=== PATIENT | male | born 1980 | race Caucasian/White ===

== ENCOUNTER 2021-11-21 08:37 | Outpatient (REF) | payer OTHER, SELFPAY ==
[2021-11-21 09:03] LABS: MANUAL DIFF FLAG NO
[2021-11-21 09:21] LABS: Basophils Absolute Auto 0.1 X10*3/uL (0.0-0.2); Basophils Percent Auto 1.2 % (0-2); Eosinophils Absolute Auto 0.2 X10*3/uL (0.0-0.4); Eosinophils Percent Auto 3.7 % (0-4); Hematocrit 44.4 % (42.0-52.0); Hemoglobin 15.3 g/dl (14.0-18.0); Imm Gran Abs Auto 0.04 X10*3/uL (0.00-0.03); Imm Gran Pct Auto 0.7 % (0.0-0.4); Lymphocytes Absolute Auto 1.7 X10*3/uL (1.2-4.9); Lymphocytes Percent Auto 28.1 % (20-40); Mean Corpuscular HGB Conc 34.5 g/dl (31.0-36.0); Mean Corpuscular Hemoglobin 29.5 pg (27.0-33.0); Mean Corpuscular Volume 85.7 fL (80.0-98.0); Mean Platelet Volume 10.1 fL (9.4-12.4); Monocytes Absolute Auto 0.9 X10*3/uL (0.1-1.2); Monocytes Percent Auto 14.4 % (2-11); Neutrophils Absolute Auto 3.1 x10*3/uL (2.0-8.3); Neutrophils Percent Auto 51.9 % (45-73); Platelet Count 211 X10*3/uL (160-400); Red Blood Count 5.18 X10*6/uL (4.60-5.80); Red Cell Distribution Width 12.3 % (11.0-16.0)
[2021-11-21 09:51] LABS: Alanine Aminotransferase 29 U/L (0-40); Albumin Level 4.4 g/dL (3.5-5.0); Alkaline Phosphatase 36 U/L (39-117); Anion Gap 14 (12-20); Aspartate Amino Transferase 26 U/L (5-37); Bilirubin Total 1.1 mg/dL (0.0-1.0); Blood Urea Nitrogen 18 mg/dL (9-16); Calcium 8.8 mg/dL (8.4-10.2); Carbon Dioxide 23 mmol/L (22-29); Chloride 106 mmol/L (96-108); Cholesterol 155 mg/dL; Estimated Glomerular Filt Rate > 60; Glucose Fasting 114 mg/dL (60-99); HDL Cholesterol 56 mg/dL; LDL Cholesterol Calculated 86 mg/dl; Potassium 4.3 mmol/L (3.3-5.1); Sodium 139 mmol/L (135-145); Triglycerides 68 mg/dL
[2021-11-21 10:12] LABS: Appearance Urine Clear; Color Urine Yellow; Glucose Urine UA Negative (Negative); Leukocyte Esterase Urine Negative (Negative); Nitrite Urine Negative (Negative); PH 6.5 (5.0-9.0); Specific Gravity - Urine 1.015 (1.005-1.025); Urine Blood Negative (Negative); Urine Ketones Negative (Negative); Urine Protein Negative (Neg-Trace)
[2021-11-21 10:47] LABS: TSH reflex Free T4 1.33 uIU/mL (0.32-4.0); Vitamin D 25-OH Total 41.6 ng/mL (>30)
[2021-11-27 08:56] LABS: Testosterone, Free 105.3 pg/mL (35.0-155.0); Testosterone, Total 458 ng/dL (250-1100)
== END 2021-11-21 08:38 | disposition home or self-care (01) ==
LOC: HO.LAB 08:37
PROVIDERS: PCP Internal Medicine; Visit Provider Internal Medicine
DX: Z00.00 Encounter for general adult medical examination without abnormal findings (principal); E55.9 Vitamin D deficiency, unspecified; N52.9 Male erectile dysfunction, unspecified
CPT/HCPCS: 36415; 80053; 80061; 81003; 82306; 84402; 84403; 84443; 85025

== ENCOUNTER 2023-10-02 15:24 | Emergency (ER) | payer OTHER, SELFPAY ==
[2023-10-02 15:46] VITALS: BP 147/109; PULSE 88; RESP 20; TEMP 37; O2SAT 97; BMI 25.8
--- NOTE | 2023-10-02 15:51 | ED.GENADULT ---
HPI - General Adult General Chief complaint: Wound/Laceration Stated complaint: rt leg wound, stitches? Time Seen by Provider: 10/02/23 16:42 Source: patient Mode of arrival: ambulatory Limitations: no limitations History of Present Illness ED Provider: [facility] narrative: Patient is a 42-year-old male presenting to the emergency department with complaint of laceration to his right lower leg. He reports that he was working on a light at home today around 10:00 a.m. when the entire fixture fell from the ceiling, causing a laceration to his right lower leg. He states that it was the metal edge of the light fixture that hit his leg. Tdap is up-to-date within the past 5 years. Reports tenderness to the area. States bleeding has been ongoing throughout the day. complaint: leg laceration Onset (ago): hour(s) Location: right and lower extremity Severity: moderate Quality: aching Associated symptoms: denies other symptoms Treatments prior to arrival: other (bandage) Related Data Home Medications ?Medication ?Instructions ?Recorded ?Confirmed No Known Home Meds 05/25/21 11/25/21 Allergies Allergy/AdvReac Type Severity Reaction Status Date / Time Penicillins [PCN] Allergy Intermediate RASH Verified 10/02/23 15:50 penicillin G Allergy Unknown rash Verified 10/02/23 15:50 Review of Systems Review of Systems: As per HPI. Yes all other systems are reviewed and are negative Constitutional: Constitutional: Reports as per HPI [facility] Past Medical History Medical History (Updated 10/02/23 @ 17:52 by Meena Jensen NP) Overweight (BMI 25.0-29.9) Surgical History No pertinent past surgical history Family History Family History Mother No problems noted. 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 Blood pressure elevated. Heart rate normal. Respiratory rate normal. Temperature normal. Oxygen saturation normal. Const General: cooperative, healthy appearing and no acute distress Orientation/consciousness: oriented to person, oriented to place, oriented to time and patient oriented x3 Limitations: no limitations HENMT Head: Yes normocephalic and Yes atraumatic Ears: external ears normal General nose exam: Normal external nose present Face and sinus: Yes face symmetric Mouth: oropharynx normal and moist mucous membranes Throat: Yes uvula midline Eyes Pupils: Equal, round and reactive pupils present Neck Neck: Yes normal visual inspection and Yes supple Resp Effort & Inspection: normal respiratory effort and able to speak in complete sentences Auscultation: clear to auscultation bilaterally Cardio Rate: regular rate Rhythm: regular rhythm Heart sounds: S1 normal heart sound present and S2 normal heart sound present Skin General skin exam: elasticity normal and turgor normal Neuro General: oriented to person, oriented to place, oriented to time, patient oriented x3, moves all extremities, no focal motor deficits and CN's II-XI intact bilaterally Cranial nerves: Yes Equal, round and reactive pupils present Cognition (Neuro): normal cognition Extrem General: Yes full ROM, Yes no pedal edema and Yes no calf tenderness Upper/lower leg/hip images: 1. u-shaped flap laceration to right anterior lower leg with slight oozing of blood, 3cm Psych Mental Status: mental status grossly normal Affect: normal affect Thought process: Normal thought process present Course Course Course Narrative: RME: done by BERNARD Wilson: 42-year-old male presents to ED for right leg laceration cut by light of fluorescein falling to his right leg causing laceration anterior tibia. Positive for anterior tibial laceration with active bleeding on exam. Patient to be evaluated [facility]. Patient states up-to-date with Tdap Medications Administered Discontinued Medications Generic Name Dose Route Start Last Admin Trade Name Freq PRN Reason Stop Dose Admin Lidocaine HCl 5 ml 10/02/23 16:49 10/02/23 17:04 Lidocaine Hcl 1 % Mpf 5 Ml Vial INFILTRATI 10/02/23 16:50 5 ml ONCE ONE Administration Procedures Laceration Laceration 1: Site: lower extremity Side (If applicable): right Size (cm): 3 Description: flap Depth: simple, single layer Local Anesthetic: lidocaine 1% Amount of anesthesia used (mL): 5 Pre-repair: wound explored, irrigated extensively and deep structures intact Skin layer closed with: nylon Size (cm): 5-0 Number of sutures: 7 Technique: simple, interrupted Medical Decision Making Medical Decision Making [facility] Narrative: Patient is a 42-year-old male presenting to the emergency department with complaint of laceration to his right lower leg. On exam patient is awake, A+Ox3, VS WNL, afebrile, normal neurological exam without focal deficits, physical exam findings as above. Given reported symptoms and physical exam findings, initial differential includes laceration. Wound thoroughly cleansed and repaired as per procedure note. Tdap up to date. Wound care instructions and return precautions discussed with patient at bedside. Follow up with PCP. Patient verbalized understanding of and agreement with plan. Differential Diagnosis Differential Diagnoses: The differential diagnosis associated with the presentation includes As per [facility] External Record Review External record reviewed: Inpatient record, Office record and Outpatient record Discharge Plan Discharge Clinical Impression: Laceration of lower leg, right Patient Disposition: Home, Self-Care Instructions: Care For Your Stitches (DC), Laceration (DC), Stitches Removal (ED) Additional Instructions: You have been evaluated in the emergency department today for a laceration to your right lower leg. Your laceration was repaired in the emergency department with 7 sutures. Please keep the area surrounding the laceration clean and dry and keep dressing in place for the next 24 hours. After that please change the dressing and assess the wound daily. Do not submerge leg in water (no swimming or hot tubs) until the wound is fully healed. Keep the area out of direct sunlight for the next 6 months to help prevent scarring. You should have the sutures removed in 7-10 days. If you develop fever, redness, swelling at the site of your laceration, or thick yellow drainage please come back to the ER for a wound check. Prescriptions: No Action No Known Home Meds Print Language: Bots[place]an
[2023-10-02 16:49] VITALS: BP 143/90; PULSE 69; RESP 17; TEMP 36.3; O2SAT 98
[2023-10-02] MEDS: Lidocaine HCl 1 % MPF 5 ML VIAL INFILTRATI (17:04)
[2023-10-02 18:06] VITALS: BP 143/90; PULSE 69; RESP 17; TEMP 36.3; O2SAT 98
== END 2023-10-02 18:06 | disposition home or self-care (01) ==
PROVIDERS: Emergency Provider Internal Medicine; PCP Internal Medicine
DX: S81.811A Laceration without foreign body, right lower leg, initial encounter (principal); M79.604 Pain in right leg; X58.XXXA Exposure to other specified factors, initial encounter; W26.8XXA Contact with other sharp object(s), not elsewhere classified, initial encounter; Y93.89 Activity, other specified; Y92.098 Other place in other non-institutional residence as the place of occurrence of the external cause; Y99.8 Other external cause status
CPT/HCPCS: 12032; 99283; 99284

== ENCOUNTER 2023-10-30 11:36 | Emergency (ER) | payer OTHER, SELFPAY ==
--- NOTE | ~2023-10-30 | XR_ITS ---
EXAMINATION: XR CHEST CLINICAL INFORMATION: Rule out mass COMPARISON: None available. TECHNIQUE: 2 views of the chest were obtained. FINDINGS: No significant abnormality is noted involving the heart, lungs, mediastinum, bony thorax or soft tissues. XR/XR chest 2V IMPRESSION: Unremarkable examination.
--- NOTE | ~2023-10-30 | US_ITS ---
EXAMINATION: US SCROTUM CLINICAL INFORMATION: Right testicular swelling. COMPARISON: None available. TECHNIQUE: A sonogram of the scrotum was performed assessing dean-scale appearance and color Doppler flow. Spectral Doppler analysis of the arterial and venous flow were performed in the testes bilaterally. FINDINGS: The study is abnormal. There is an intratesticular abnormality concerning for malignancy. RIGHT: Right testicle measures 5.0 x 3.6 x 3.8 cm, volume 36 mL. There is a heterogeneous slightly irregular mass within the parenchyma of the right testicle measuring 4.1 x 3.0 x 3.5 cm. The mass contains color signal. 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 Spectral Doppler analysis of the arterial and venous flow is increased in the right testis. Right epididymal head is normal in size. No right hydrocele or varicocele is seen. Right epididymal Doppler flow is normal. LEFT: Left testicle measures 4.3 x 2.1 x 2.9 cm, volume 14 mL. No focal testicular parenchymal lesions are visualized. Spectral Doppler analysis of the arterial and venous flow is normal in the left testis. There is left testicular microlithiasis. Left epididymal head is normal in size. No left hydrocele or varicocele is seen. Left epididymal Doppler flow is normal. US/US scrotum doppler IMPRESSION: Abnormal exam. Heterogeneous vascular mass within the right testicle. The right testicle is enlarged. Malignancy may be present. Urologic consultation recommended.
--- NOTE | ~2023-10-30 | CT_ITS ---
EXAMINATION: CT ABDOMEN AND PELVIS WITH CONTRAST CLINICAL INFORMATION: Possible testicular cancer, please evaluate node/spread COMPARISON: Ultrasound dated 10/30/2023 TECHNIQUE: Multidetector volumetric images were obtained from the superior aspect of the liver through the pubic symphysis following administration 85 mL of Omnipaque 350 intravenous contrast. Sagittal and coronal reformatted images were obtained on the technologist's workstation. Oral contrast: No This CT examination was performed using dose optimization techniques as appropriate, variously including the following: *Automated exposure control *Adjustment of mA and/or kV according to patient size (this includes techniques or standardized protocols for targeted exams where dose is matched to indication/reason for exam; i.e. extremities or head) *Use of iterative reconstruction technique DLP: 471 mGy-cm FINDINGS: LUNG BASES: Unremarkable. ABDOMINAL AND PELVIC WALL: Unremarkable. LIVER AND BILIARY TREE: Diffuse hypoattenuation of liver parenchyma consistent with hepatic steatosis. GALLBLADDER: Unremarkable. PANCREAS: Unremarkable. SPLEEN: Unremarkable. ADRENAL GLANDS: Unremarkable. KIDNEYS AND URETERS: Unremarkable. GASTROINTESTINAL TRACT: Colonic diverticulosis, no findings of diverticulitis. Appendix is within normal limits. VASCULAR: Unremarkable. LYMPH NODES/PERITONEUM: 7 mm aortocaval lymph node (3:40). FREE FLUID: None. BLADDER: Unremarkable. PELVIC VISCERA: Unremarkable. OSSEOUS STRUCTURES: Unremarkable. CT/CT abdomen pelvis w IV con IMPRESSION: * 7 mm aortocaval lymph node. Otherwise, no CT findings of abdominopelvic metastatic disease. * Hepatic steatosis.
--- NOTE | ~2023-10-30 | US_ITS ---
EXAMINATION: US SCROTUM CLINICAL INFORMATION: Right testicular swelling. COMPARISON: None available. TECHNIQUE: A sonogram of the scrotum was performed assessing dean-scale appearance and color Doppler flow. Spectral Doppler analysis of the arterial and venous flow were performed in the testes bilaterally. FINDINGS: The study is abnormal. There is an intratesticular abnormality concerning for malignancy. RIGHT: Right testicle measures 5.0 x 3.6 x 3.8 cm, volume 36 mL. There is a heterogeneous slightly irregular mass within the parenchyma of the right testicle measuring 4.1 x 3.0 x 3.5 cm. The mass contains color signal. 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 Spectral Doppler analysis of the arterial and venous flow is increased in the right testis. Right epididymal head is normal in size. No right hydrocele or varicocele is seen. Right epididymal Doppler flow is normal. LEFT: Left testicle measures 4.3 x 2.1 x 2.9 cm, volume 14 mL. No focal testicular parenchymal lesions are visualized. Spectral Doppler analysis of the arterial and venous flow is normal in the left testis. There is left testicular microlithiasis. Left epididymal head is normal in size. No left hydrocele or varicocele is seen. Left epididymal Doppler flow is normal. US/US scrotum IMPRESSION: Abnormal exam. Heterogeneous vascular mass within the right testicle. The right testicle is enlarged. Malignancy may be present. Urologic consultation recommended.
[2023-10-30 11:46] VITALS: BP 147/100; PULSE 75; RESP 20; O2SAT 100; BMI 29.0
--- NOTE | 2023-10-30 11:46 | ED_ITS ---
HPI - General Adult General Chief complaint: Urogenital-Male Stated complaint: swelling private area Time Seen by Provider: 10/30/23 12:14 Source: patient Mode of arrival: ambulatory Limitations: no limitations History of Present Illness HPI narrative: Patient is a 42-year-old male who reports that 4 days ago in the morning he was lifting a heavy stone. A few hours later he noticed he was having discomfort to his right testicle and developed swelling. He reports the swelling has been pretty consistent since its onset but has not improved. Reports pain to be 2/10. He denies dysuria, hematuria, urethral discharge, fevers, chills, nausea, vomiting, constipation, diarrhea. Denies concern for sexually transmitted infections. He presented to an urgent care earlier today for evaluation was advised to come to the emergency department for further evaluation. Related Data Home Medications ?Medication ?Instructions ?Recorded ?Confirmed No Known Home Meds 05/25/21 11/25/21 Allergies Allergy/AdvReac Type Severity Reaction Status Date / Time Penicillins [PCN] Allergy Intermediate RASH Verified 10/30/23 11:48 penicillin G Allergy Unknown rash Verified 10/30/23 11:48 Review of Systems 2 Review of Systems: Yes all other systems are reviewed and are negative PMFSH Past Medical History Attestation statement: The following information was validated with the patient. Source: old records reviewed Medical History Overweight (BMI 25.0-29.9) Surgical History No pertinent past surgical history Family History Family History Mother No problems noted. 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 No acute distress.?Normal affect. Eyes: Pupils equal, round and reactive to light.? ENT: Pharynx normal.?? Neck: Normal inspection.? Neck supple.?? CVS: Heart sounds normal. Normal heart rate and rhythm.? Pulses normal.?? Respiratory: No respiratory distress.? Lung sounds clear to auscultation bilaterally?? Abdomen: Soft and non-tender. Normoactive bowel sounds. No pulsatile mass.?? Urogenital: Performed with bread supervisor, ED SOFTWARE ENGINEERING SPECIALIST Faith. Negative cremasteric reflex on the right, positive on the left. Negative phren sign. right scrotum firm to palpation. Skin: Skin warm and dry.? Normal skin color.? Extremities: No lower extremity edema.? Neuro: Moves all extremities spontaneously. Sensation intact bilaterally. Ambulates with normal steady gait. Course Course Course Narrative: This is a rapid medical exam performed by Andria Jensen NP: Additional HPI, ROS, PE not included below will be deferred to primary provider. Patient is a 42-year-old male presenting to the ED with complaint of right testicular swelling since after lifting a stove alone. Denies difficulty urinating. Seen at urgent care and referred to the ED for further eval. Rates pain at 2/10. Area not visualized in triage due to privacy concerns. Plan: UA, u/s Reevaluation(s) Reevaluation #1: Patient signed out to Annabelle WAGNER pending ultrasound and re-evaluation/ disposition Ultrasound came back very concerning for malignancy showing a heterogeneous vascular mass within the right testicle which is enlarged I repeated the exam so I would be able to communicate with the urologist and the exam did confirm a hard nontender enlarged right testicle I communicated by text with Dr. Joseph stephens who requested labs and a CT abdomen and pelvis and a chest x-ray which were done CT abdomen and pelvis showed a 7 mm aortocaval lymph node but no other CT findings of metastatic disease in the abdomen or pelvis Chest x-ray was negative No acute findings on CBC chemistry or urinalysis CT gonorrhea test were negative Patient was informed of all results and the strong concern for cancer and he understood the importance of close follow-up He is given the number of Dr. Joseph stephens and will follow next week He is informed of all lab and imaging results and given copies of CT report and ultrasound report Time: 13:47 Medications Administered Discontinued Medications Generic Name Dose Route Start Last Admin Trade Name Fuentesq PRN Reason Stop Dose Admin Iohexol 85 ml 10/30/23 17:57 10/30/23 17:57 Iohexol 350 Mg/Ml 100 Ml Infus..Btl IV 10/30/23 17:58 85 ml ONCE ONE Administration Medical Decision Making Medical Decision Making [facility] Narrative: Patient is a 42-year-old male who presents emergency department for evaluation of right testicular pain and swelling as per HPI. On examination has negative cremasteric reflex concerning for possible torsion versus hernia. Ultrasound to be obtained for further evaluation. Denies concern for infection; urinary and/or sexually transmitted infection. Differential Diagnosis Differential Diagnoses: The differential diagnosis associated with the presentation includes (Torsion, hernia, epididymitis, hydrocele) Admission/Observation Consideration of admission/observation: Escalation of care including admission/observation considered Lab Data [facility] Lab Attestation statement: I reviewed the patient's lab results. 10/30/23 16:12 10/30/23 16:12 Labs: Lab Results 10/30/23 10/30/23 Range/Units 12:34 16:12 WBC 10.8 (4.8-10.8) X10*3/uL RBC 5.09 (4.60-5.80) X10*6/uL Hgb 15.2 (14.0-18.0) g/dl Hct 43.5 (42.0-52.0) % MCV 85.5 (80.0-98.0) fL MCH 29.9 (27.0-33.0) pg MCHC 34.9 (31.0-36.0) g/dl RDW 12.0 (11.0-16.0) % Plt Count 259 (160-400) X10*3/uL MPV 9.9 (9.4-12.4) fL Immature Gran % (Auto) 0.6 H (0.0-0.4) % Neut % (Auto) 68.9 (45-73) % Lymph % (Auto) 17.4 L (20-40) % [place] % (Auto) 11.8 H (2-11) % Eos % (Auto) 0.5 (0-4) % Baso % (Auto) 0.8 (0-2) % Lymph # (Auto) 1.9 (1.2-4.9) X10*3/uL [place] # (Auto) 1.3 H (0.1-1.2) X10*3/uL Eos # (Auto) 0.1 (0.0-0.4) X10*3/uL Baso # (Auto) 0.1 (0.0-0.2) X10*3/uL Abs Immat Gran (auto) 0.07 H (0.00-0.03) X10*3/uL Absolute Neuts (auto) 7.4 (2.0-8.3) x10*3/uL Absolute Nucleated RBC 0.000 (0.0-0.012) X10*3/uL Nucleated RBC % (auto) 0.0 (0.0-0.2) /100WBC Sodium 138 (135-145) mmol/L Potassium 3.8 (3.3-5.1) mmol/L Chloride 101 (96-108) mmol/L Carbon Dioxide 25 (22-29) mmol/L Anion Gap 16 (12-20) BUN 13 (9-16) mg/dL Creatinine 0.99 (0.5-1.4) mg/dL Estim Creat Clear Calc 102.7 Estimated GFR > 60 Random Glucose 115 (60-115) mg/dL Calcium 10.3 H D (8.4-10.2) mg/dL Total Bilirubin 0.9 (0.0-1.0) mg/dL Direct Bilirubin 0.3 (0.0-0.5) mg/dL AST 24 (5-37) U/L ALT 25 (0-40) U/L Alkaline Phosphatase 61 (39-117) U/L Total Protein 8.4 H (6.5-8.0) g/dL Albumin 5.0 (3.5-5.0) g/dL Lipase 39 (8-78) U/L Urine Color Yellow Urine Appearance Clear Urine pH 6.5 (5.0-9.0) Ur Specific [place] 1.010 (1.005-1.025) Urine Protein Negative (Neg-Trace) mg/dL Urine Glucose (UA) Negative (Negative) mg/dL Urine Ketones Negative (Negative) mg/dL Urine Blood Negative (Negative) Urine Nitrite Negative (Negative) Ur Leukocyte Esterase Negative (Negative) Chlam trachomat DNA PCR NOT DETECTED (Not Detect.) N.gonorrhoeae DNA (PCR) NOT DETECTED (Not Detect.) Radiology Impression Discussion of test interpretation with radiology: I have reviewed the radiologist's reading. External Record Review External record reviewed: Outpatient record Prescription Management I considered prescription management with: Pain Medication Discharge Plan Discharge Clinical Impression: Testicular mass Patient Disposition: Home, Self-Care Additional Instructions: The physical exam finding of palpated a mass and the ultrasound finding of visualizing a mass in the right testicle is concerning that this could be a malignancy, a cancer I communicated by text with Dr. vinson of Urology, we ordered labs and imaging based on the doctor's request The blood tests do not come back for several days The doctor's office will call you or you could call them for an appointment It is very important that you talk to a nurse for someone from the doctor's office to decide whether or not you can take your trip to [facility] They should be able to get you in contact with the nurse who can talk to the doctor and see if anything Urgent will be done in the next 12 days It is important to follow their advice It is also a good idea to get your primary care doctor involved by informing them of the findings and if there are any issues with getting seen by our urologist your doctor will help Return any time any worse condition or any concerns Prescriptions: No Action No Known Home Meds Referrals: Leonid Vinson MD [Physician] - (Concern for testicular cancer based on ultrasound and exam showing mass, case was discussed by text) Print Language: Ukrainian
[2023-10-30 13:01] LABS: Appearance Urine Clear; Color Urine Yellow; Glucose Urine UA Negative (Negative); Leukocyte Esterase Urine Negative (Negative); Nitrite Urine Negative (Negative); PH 6.5 (5.0-9.0); Urine Blood Negative (Negative); Urine Ketones Negative (Negative); Urine Protein Negative (Neg-Trace)
[2023-10-30 14:29] LABS: CT PCR NOT DETECTED (Not Detect.); NG PCR NOT DETECTED (Not Detect.)
[2023-10-30 16:18] LABS: MANUAL DIFF FLAG NO
[2023-10-30 16:20] LABS: Basophils Absolute Auto 0.1 X10*3/uL (0.0-0.2); Basophils Percent Auto 0.8 % (0-2); Eosinophils Absolute Auto 0.1 X10*3/uL (0.0-0.4); Eosinophils Percent Auto 0.5 % (0-4); Hematocrit 43.5 % (42.0-52.0); Hemoglobin 15.2 g/dl (14.0-18.0); Imm Gran Abs Auto 0.07 X10*3/uL (0.00-0.03); Imm Gran Pct Auto 0.6 % (0.0-0.4); Lymphocytes Absolute Auto 1.9 X10*3/uL (1.2-4.9); Lymphocytes Percent Auto 17.4 % (20-40); Mean Corpuscular HGB Conc 34.9 g/dl (31.0-36.0); Mean Corpuscular Hemoglobin 29.9 pg (27.0-33.0); Mean Corpuscular Volume 85.5 fL (80.0-98.0); Mean Platelet Volume 9.9 fL (9.4-12.4); Monocytes Absolute Auto 1.3 X10*3/uL (0.1-1.2); Monocytes Percent Auto 11.8 % (2-11); Neutrophils Absolute Auto 7.4 x10*3/uL (2.0-8.3); Neutrophils Percent Auto 68.9 % (45-73); Platelet Count 259 X10*3/uL (160-400); Red Blood Count 5.09 X10*6/uL (4.60-5.80); White Blood Count 10.8 X10*3/uL (4.8-10.8)
[2023-10-30 17:01] LABS: Alanine Aminotransferase 25 U/L (0-40); Alkaline Phosphatase 61 U/L (39-117); Anion Gap 16 (12-20); Aspartate Amino Transferase 24 U/L (5-37); Bilirubin Direct 0.3 mg/dL (0.0-0.5); Bilirubin Total 0.9 mg/dL (0.0-1.0); Blood Urea Nitrogen 13 mg/dL (9-16); Calcium 10.3 mg/dL (8.4-10.2); Carbon Dioxide 25 mmol/L (22-29); Chloride 101 mmol/L (96-108); Creatinine Clr Calc Pharmacy 102.7; Estimated Glomerular Filt Rate > 60; Glucose Random 115 mg/dL (60-115); Lipase 39 U/L (8-78); Potassium 3.8 mmol/L (3.3-5.1); Sodium 138 mmol/L (135-145); Total Protein 8.4 g/dL (6.5-8.0)
[2023-10-30] MEDS: iohexoL 350 MG/ML 100 ML INFUS..BTL 85 ML IV (17:57)
[2023-10-30 19:14] VITALS: BP 147/100; PULSE 75; RESP 20; TEMP 36.9; O2SAT 100
[2023-11-01 08:44] LABS: HCG Tumor Marker <5 mIU/mL (<5)
[2023-11-01 12:59] LABS: Alpha Fetoprotein 3.5 ng/mL (<6.1)
== END 2023-10-30 19:16 | disposition home or self-care (01) ==
PROVIDERS: Physician Assistant Medical; Registered Nurse Emergency; Emergency Provider Emergency Medicine; PCP Internal Medicine
DX: N50.811 Right testicular pain (principal); N50.89 Other specified disorders of the male genital organs; R10.2 Pelvic and perineal pain; R59.9 Enlarged lymph nodes, unspecified; Z79.899 Other long term (current) drug therapy
CPT/HCPCS: 36415; 71046; 74177; 76870; 80048; 80076; 81003; 82105; 83690; 84702; 85025; 87491; 87591; 93975; 99282; 99283; Q9967

== ENCOUNTER 2023-11-25 13:09 | Outpatient (AMB) | payer OTHER, SELFPAY ==
--- NOTE | 2023-11-25 13:31 | A.OFFVIS_ITS ---
Intake Visit Reasons: scrotal mass Intake Note: New patient is present for [facility] Follow up for Scrotal Mass Scrotal US and CT was obtained at ER Visit Patient states that he does not believe that Lifting stove alone had caused this pain and discomfort. Patient states that he does feel pain and swelling but sta elsa that it is not as bad as he was first was when he went to the ER. 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 He is a patient of . He is seen for the following urologic conditions - right testicular mass J tells me this issue with his testicle has been slowly developing over the past 6-8 months Has pain on exam which is not consistent with testicular cancer Testicle is definitely abnormal May well have had some sort of vascular injury Plan for right radical orchiectomy Right testicular mass Ultrasound with 4 cm right testicular heterogeneous vascular mass CT scan no evidence brenda disease Tumor markers negative COUNTS INCLUDE 234 BEDS AT THE [facility] Medical History Overweight (BMI 25.0-29.9) Surgical History No pertinent past surgical history Family History Mother No problems noted. 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 Cognitive needs: No Hearing needs: No Vision needs: No Review of Systems Const Denies chills and Denies fever(s) Card Reports no additional complaints and Denies syncope Resp Denies cough GI Denies abdominal pain and Denies heartburn Reports as per HPI and Denies change in libido Neuro Denies syncope Psych Denies change in libido Endo Denies change in libido Physical Exam Const General: cooperative, healthy appearing, comfortable and no acute distress Orientation/consciousness: patient oriented x3 HEENT Face and sinus: Yes normal facial exam Mouth: moist mucous membranes Neck Neck: Yes normal visual inspection, Yes full ROM and Yes trachea midline Chest Chest palpation & inspection: normal inspection of the chest Resp Effort & Inspection: normal respiratory effort, able to speak in complete sentences and no respiratory distress GI Inspection: Yes normal to inspection Back/Spine/Pelvis Cervical Spine: normal cervical lordosis Thoracic/Lumbar Spine: thoracic and lumbar spine normal to inspection Skin General skin exam: no rashes or lesions noted Neuro General: patient oriented x3, gait normal, tone normal and moves all extremities Extrem General: Yes normal to inspection and Yes capillary refill normal Assessment & Plan Assessment & Plan (1) Testicular mass: Code(s): N50.89 - Other specified disorders of the male genital organs Category: Medical Plan Risks, benefits and alternatives to therapy were discussed. These include but are not limited to infection, bleeding, damage to local organs and tissues, need for further interventions. Anesthetic risks regarding cardiac arrhythmia, blood clots, and potential mortality were discussed. The patient understands the typical recovery time and the outpatient nature of the procedure. After consideration of these risks the patient gives full informed consent and they wish to move ahead with the procedure. Right radical orchiectomy Patient Instructions: Imaging studies, laboratory and physical exam results were discussed and reviewed in detail. No major barriers to patient understanding were identified. An opportunity to ask questions regarding the treatment plan was provided. All questions were answered. The patient expressed understanding and agreement with the above treatment plan. The patient is aware they should contact our office by phone for worsening of their current condition or the appearance of new urologic symptoms. Compliance is encouraged with any medications and followup testing that is ordered. It is a privilege to participate in the urologic care of your patient. If you have any questions or concerns regarding treatment for the above conditions, or other urologic issues, please do not hesitate to contact me. The office telephone contact is [phone]. This note is constructed using voice recognition software. While every effort has been made to ensure accuracy law office assistant errors may have been included. Yours sincerely, Dr Kingston Troy MD, ROLA [facility] - Urology Providers of Expert, Compassionate Care for the Genitourinary System Coding Level of Care Code New Pt Level 4 (93293) Diagnoses Testicular mass N50.89
== END 2023-11-25 14:08 | disposition home or self-care (01) ==
PROVIDERS: PCP Internal Medicine; Visit Provider Urology
DX: N50.89 Other specified disorders of the male genital organs (principal)
CPT/HCPCS: 99204

== ENCOUNTER → 2023-11-25 13:09 | Outpatient (BNVA) | payer OTHER, SELFPAY | PROVIDERS: PCP Internal Medicine; Visit Provider Urology | DX: N50.89 Other specified disorders of the male genital organs (principal) | CPT/HCPCS: 99202 ==

== ENCOUNTER 2023-12-19 09:14 | Day surgery (SDC) | payer OTHER, SELFPAY ==
--- NOTE | 2023-12-16 12:31 | P.CONAN_ITS ---
Documented by User: Patricia Page NP 12/16/23 12:32 HPI - Anesthesia Eval Consult details Narrative: 43yo M for Right Orchiectomy Radical PMFSH Active Problems Active Problems: All Active Problems Impaired fasting glucose (Acute) Erectile dysfunction (Acute) Annual physical exam (Acute) Overweight (BMI 25.0-29.9) (Acute) Past Medical History Medical History (Updated 12/15/23 @ 13:37 by Aileen Dhaliwal RN) Impaired fasting glucose Erectile dysfunction Testicular mass Overweight (BMI 25.0-29.9) Family History Family History Mother No problems noted. Father Heart problem Surgical History Surgical History No pertinent past surgical history Social History Social History Housing: House Are you a primary farm or ranch animal caretaker to a significant other at home: No Do you presently have visiting nurse or other home services: No Alcohol intake: current Alcohol intake frequency: 3 or more drinks per day Patient Tobacco Use Status: Former Tobacco user Tobacco use type: Cigarette Cigarette Packs Per Day: 1 Cigarettes Per Day: 20.0 Years Smoked: 12 Smoked in Last 30 Days: No Second Hand Smoke Exposure: Yes Use of substances other than those prescribed or required for medical reasons: Yes Substance Use Frequency: Daily Have you been hit, kicked, punched, or otherwise hurt by someone within the past year? 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 Cognitive needs: No Hearing needs: No Vision needs: No Meds Allergies Allergy/AdvReac Type Severity Reaction Status Date / Time Penicillins [PCN] Allergy Intermediate RASH Verified 12/19/23 09:52 Home Medications ?Medication ?Instructions ?Recorded ?Confirmed ?Last Taken ?Type No Known Home Meds 05/25/21 12/19/23 Unknown History Exam Pertinent Lab Results Pertinent Lab Results: Laboratory Tests 10/30/23 16:12 WBC 10.8 Hgb 15.2 Hct 43.5 Plt Count 259 Sodium 138 Potassium 3.8 Chloride 101 Carbon Dioxide 25 BUN 13 Creatinine 0.99 Assessment and Plan Assessment Anesthesia Assessment: Chart Reviewed Documented by User: Riley Martínez MD 12/19/23 11:15 [facility] Past Medical History Medical History (Updated 12/15/23 @ 13:37 by Aileen Dhaliwal RN) Impaired fasting glucose Erectile dysfunction Testicular mass Overweight (BMI 25.0-29.9) Family History Family History Mother No problems noted. Father Heart problem Family history of problems with anesthesia: No Surgical History Surgical History No pertinent past surgical history History of Problems with Anesthesia: No Social History Social History Housing: House Are you a primary farm or ranch animal caretaker to a significant other at home: No Do you presently have visiting nurse or other home services: No Alcohol intake: current Alcohol intake frequency: 3 or more drinks per day Patient Tobacco Use Status: Former Tobacco user Tobacco use type: Cigarette Cigarette Packs Per Day: 1 Cigarettes Per Day: 20.0 Years Smoked: 12 Smoked in Last 30 Days: No Second Hand Smoke Exposure: Yes Use of substances other than those prescribed or required for medical reasons: Yes Substance Use Frequency: Daily Have you been hit, kicked, punched, or otherwise hurt by someone within the past year? 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 Cognitive needs: No Hearing needs: No Vision needs: No Meds Allergies Allergy/AdvReac Type Severity Reaction Status Date / Time Penicillins [PCN] Allergy Intermediate RASH Verified 12/19/23 09:52 Home Medications ?Medication ?Instructions ?Recorded ?Confirmed ?Last Taken ?Type No Known Home Meds 05/25/21 12/19/23 Unknown History Exam Airway Mallampati Class: I TM Dist: <=3cm Neck ROM: Full Loose/Missing/Broken Teeth: No Heart: ok Lungs: ok Assessment and Plan Assessment Anesthesia Assessment: Anesthesia Plan Discussed Final Anesthetic Review Family History of Problems with Anesthesia: No History of Problems with Anesthesia: No NPO: Yes ASA Class: II Final Preanesthetic Review: No Changes in Pt Med Stat, Meds/Allgs Chart Reviewed, Consent Obtained/Reviewed and Anes Risks/Benef Reviewed Patient Risk: Low Procedure Risk: Low Anesthetic Plan Anesthetic Plan: GA and Agree w/ Assess. and Plan Disposition: Standard PACU
[2023-12-19] VITALS (13 sets, daily range): BP systolic 127–182; BP diastolic 73–93; PULSE 47–72; RESP 15–18; TEMP 36.5–36.9; O2SAT 96–99; BMI 26.8
[2023-12-19] MEDS: Lactated Ringers 1,000 ML 100 ML IVCONT (10:04)
--- NOTE | 2023-12-19 10:30 | P.HPSUR_ITS ---
Pre-Procedural Eval Section A - 24 Hr Update-Section A only Date of Service: 12/19/23 The patient is an INPATIENT: No Changes since office visit: No Cold of Flu in the past 2 weeks, No New Medical Problems, No Changes in Medication and No Patient answered all questions The patient has been examined within 24 hours of the surgical procedure. The History & Physical has been completed within 30 days and I have reviewed it.: Yes Section B - Complete if H&P > 30 days Chief Complaint: Other specified disorders of the male genital orga Allergies: Allergies Allergy/AdvReac Type Severity Reaction Status Date / Time Penicillins [PCN] Allergy Intermediate RASH Verified 12/19/23 09:52 Review of Systems Sugical H&P ROS: Negative: Constitution, Cardiovascular, Respiratory, Neurological, Psychiatric, Hem-Onc, Allergic/Immunologic, Gastrointestinal, Genitourinary, Musculoskeletal, Integumentary, Endocrine and Ey es/Ears/Nose/Throat Exam Surgical H&P Exam: Normal: HEENT, Normal: Heart, Normal: Lungs, Normal: Extremities, Normal: Abdomen, Normal: Skin and Normal: Neurological Plan Diagnosis/Plan: Unchanged (Right radical orchiectomy) I have reviewed the history and physical and performed a pertinent physical examination on my patient. No changes have occurred unless specified. Time Spent With Patient Time: Total time managing care of this patient today ____ minutes.
--- NOTE | 2023-12-19 11:34 | P.OP_ITS ---
Operative Note Operative Note Date of Service: 12/19/23 Narrative: PreOperative Diagnosis: Right testicle mass Post Operative Diagnosis: Right testicle mass Procedure: right radical orchiectomy Surgeon: Dr Kingston Troy Anesthesia: general Indications for procedure: Right testicular mass on imaging. Recommend radical orchiectomy. Normal tumor markers. There is a heterogeneous slightly irregular mass within the parenchyma of the right testicle measuring 4.1 x 3.0 x 3.5 cm. The mass contains color signal. Procedure: After informed consent was verified the patient was brought to the operating room and placed in a supine position. Anesthesia was administered per protocol. The patient was prepped and draped in a sterile fashion. Safety pause time-out was performed. Antibiotics being given. Palpation was performed through the right inguinal canal. The canal was palpated and an incision marked approximately 8 cm in length running 2 to 3 cm caudad to the inguinal canal. Local anesthetic was infiltrated. The incision was made with a 10 blade through the skin into the subcutaneous tissue. Subcutaneous tissue was dissected until the cord was identified and the surrounding fascia. A Jolene clamp was placed from the lateral superior pubis under the cord structures and the cord was isolated using a quarter-inch Spearman drain. This was double wrapped to control vascular drainage from the testicular manipulation. The testicle itself was then delivered from the scrotum through the incision. The gubernacular attachments were divided using a LigaSure device to minimize postoperative bleeding. Once the testicle had been freed in fully elevated the empty scrotal sac was irrigated. The cord was traced in a proximal fashion and the overlying fascia was divided for approximately 1 in over the inguinal canal. Cord was fully elevated and the vas deferens was dissected free from the vascular pedicle. Clamps were placed on the vas deferens and separately through the vascular pedicle. The cord structures were then divided using the LigaSure device. The vascular pedicle was marked using a stick tie 2.0 Silk. A long tail was left as the cord structures retracted into the retroperitoneal space. The vas deferens was tied with a 3-0 Vicryl. The overlying fascia was then reapproximated using a running 3-0 Prolene suture. The wound was then re-irrigated. Adriana's fascia was reapproximated with interrupted 3-0 Vicryl. Skin edge was reapproximated with interrupted 3-0 Vicryl. Skin was closed using a running 4-0 Monocryl suture. At completion of skin closure glue was used. A dressing was placed. He tolerated procedure well. Was extubated in the operating room and transferred in a stable condition to the recovery area. Pathology: Right testicle Drains: none Incision 10:58, Closure 11:26
[2023-12-19] MEDS: Acetaminophen 325 MG TABLET 650 MG PO (11:48)
[2023-12-19] MEDS: oxyCODONE HCl Immed Release 5 MG TABLET PO (11:49)
[2023-12-19] MEDS: Ketorolac Tromethamine 15 MG/ML VIAL IVPUSH (11:50)
[2023-12-19] MEDS: fentaNYL citrate/PF 100 MCG/2 ML VIAL 50 MCG IVPUSH (12:48)
== END 2023-12-19 14:32 | disposition home or self-care (01) ==
PROVIDERS: PCP Internal Medicine; Visit Provider Urology
PROC: (CPT 54530; principal; 2023-12-19 11:50)
DX: C62.11 Malignant neoplasm of descended right testis (principal); N50.89 Other specified disorders of the male genital organs; N50.811 Right testicular pain; N52.9 Male erectile dysfunction, unspecified; R73.01 Impaired fasting glucose; Z88.0 Allergy status to penicillin; Z87.891 Personal history of nicotine dependence
CPT/HCPCS: 54530; 88309; 88341; 88342; J0690; J1885; J2250; J2704; J2795; J3010

== ENCOUNTER → 2023-12-19 09:14 | Outpatient (BNV) | payer OTHER, SELFPAY | PROVIDERS: PCP Internal Medicine; Visit Provider Urology | DX: D40.11 Neoplasm of uncertain behavior of right testis (principal) | CPT/HCPCS: 54530 ==

== ENCOUNTER 2024-01-03 14:33 | Outpatient (AMB) | payer OTHER, SELFPAY ==
--- NOTE | 2024-01-03 14:26 | A.OFFVIS_ITS ---
Intake Visit Reasons: Right radical orchiectomy- f/u Intake Note: Patient is present for Right RadicL ORCHIECTOMY F/U Urology Medication:Naproxen, hydrocodone Antibiotic Allergy:none Blood Thinner:none Systems Technologist Required: No Allergies Penicillins [PCN] Allergy (Intermediate, Verified 01/03/24 14:32) RASH HPI Comments Details: Александр is a very pleasant male. He is a patient of . He is seen for the following urologic conditions - right testicular seminoma Telemedicine Evaluation 15 min Consultation [facility] [employer] Mary Video Seminoma, 3.1 cm (pT1b): - All margins are free of tumor Discussed diagnosis Options are single-cycle carbo [place] with yearly imaging vs surveillance protocol abdomen pelvis contrast Imaging q.6 months for 5 years Refer oncology 4 week follow-up Right testicular seminoma Ultrasound with 4 cm right testicular heterogeneous vascular mass CT scan no evidence brenda disease Tumor markers negative Radical orchiectomy - seminoma pT1 [facility] Medical History (Updated 01/03/24 @ 15:20 by Kingston Troy MD) Impaired fasting glucose Erectile dysfunction Testicular mass Overweight (BMI 25.0-29.9) Surgical History No pertinent past surgical history Family History Mother No problems noted. 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 Cognitive needs: No Hearing needs: No Vision needs: No Review of Systems Const All systems reviewed & are unremarkable except as noted in HPI and below Reports no additional complaints Resp Reports no additional complaints GI Reports no additional complaints Reports as per HPI Musc Reports no additional complaints Physical Exam Telemedicine evaluation Appropriate responses Regular breathing rate and rhythm HEENT Head: Yes normal to inspection Ears: hearing grossly normal bilaterally Eyes General: appearance normal, both eyes and all related structures Neck Neck: Yes normal visual inspection Chest Chest palpation & inspection: normal inspection of the chest Resp Effort & Inspection: normal respiratory effort and able to speak in complete sentences Telehealth Telehealth Telehealth Platform: [facility] [employer] Location of provider rendering services: practice address Location of patient: address on file Patient Identification confirmed using: Name, : Yes Telehealth method: video Patient verbally consented to treatment: Yes Patient verbally consented to billing insurance company: Yes Patient informed of any privacy concerns related to visit: Yes Minutes spent on Phone/Video with Pt.: 15 Assessment & Plan Assessment & Plan (1) Seminoma: Comment: Right seminoma T1b Code(s): C62.90 - Malignant neoplasm of unspecified testis, unspecified whether descended or undescended Category: Medical Plan Oncology referral One month follow-up Orders: Referrals Hematology & Oncology Referral C62.90 - Malignant neoplasm of unspecified testis, unspecified whether descended or undescended Patient Instructions: Imaging studies, laboratory and physical exam results were discussed and reviewed in detail. No major barriers to patient understanding were identified. An opportunity to ask questions regarding the treatment plan was provided. All questions were answered. The patient expressed understanding and agreement with the above treatment plan. The patient is aware they should contact our office by phone for worsening of their current condition or the appearance of new urologic symptoms. Compliance is encouraged with any medications and followup testing that is ordered. It is a privilege to participate in the urologic care of your patient. If you have any questions or concerns regarding treatment for the above conditions, or other urologic issues, please do not hesitate to contact me. The office telephone contact is [phone]. This note is constructed using voice recognition software. While every effort has been made to ensure accuracy physician president errors may have been included. Yours sincerely, Dr Kingston Troy MD, ROLA [facility] - Urology Providers of Expert, Compassionate Care for the Genitourinary System Coding Level of Care Code Tele Est Pt Level 4 (90674) Diagnoses Seminoma C62.90
== END 2024-01-03 15:24 | disposition home or self-care (01) ==
LOC: HO.HUSH 14:33
PROVIDERS: PCP Internal Medicine; Visit Provider Urology
DX: C62.91 Malignant neoplasm of right testis, unspecified whether descended or undescended (principal)
CPT/HCPCS: 99024

== ENCOUNTER → 2024-01-03 14:33 | Outpatient (BNVA) | payer OTHER, SELFPAY | PROVIDERS: PCP Internal Medicine; Visit Provider Urology ==

== ENCOUNTER → 2024-01-17 09:20 | Outpatient (BNV) | payer OTHER, SELFPAY | PROVIDERS: PCP Internal Medicine; Referring Provider Urology; Visit Provider Internal Medicine Medical Oncology | DX: C62.91 Malignant neoplasm of right testis, unspecified whether descended or undescended (principal) | CPT/HCPCS: 99204; 99213 ==

== ENCOUNTER 2024-01-24 17:20 | Outpatient (AMB) | payer OTHER, SELFPAY ==
[2024-01-24 17:22] VITALS: BP 120/72; PULSE 68; O2SAT 97; BMI 26.5
--- NOTE | 2024-01-24 17:22 | MHC.PC.OV ---
Vital Signs 01/24/24 17:22 Height 5 ft 11 in Weight 190 lb 2 oz BMI 26.5 BP 120/72 Blood Pressure Location Lt brachial Position Sitting Pulse 68 Pulse Source Pulse Oximeter Pulse Oximetry (%) 97 Oxygen Delivery Method Room Air Intake Visit Reasons: Annual PE Information Coordinator Required: No Accompanied by: Self / Same As Patient Allergies Penicillins [PCN] Allergy (Intermediate, Verified 01/24/24 18:22) RASH Medication List - Last Reconciled 01/24/24 by Mark Barbosa MD No Known Home Meds Tobacco use date assessed: 01/24/24 Dental Screening Dental Screen Date: 01/24/24 Did you have a dental visit in the last 12 months?: No Did you have a dental problem in the last 6 months where you did not have access to dental care?: No Was dental information given to patient?: Patient has dentist HPI Annual PE HPI Details Patient comes in today for his annual physical examination - he was last seen over 2 years ago on 11/25/2021 He was recently diagnosed with right testicular seminoma Work ups started when he presented to the ER a couple of months ago for right testicular discomfort and swelling He eventually underwent right radical orchiectomy with Dr. Troy on 12/19/2023 Pathology came back as seminoma, pT1b, with all margins clear of tumor He was seen by oncology last week and is being sent for chest, abdomen and pelvic CT for staging, after which he will be starting adjuvant treatment with 1 to 2 cycles of carboplatin Patient states that he currently feels okay He denies any headaches or dizziness Denies any chest pains, no SOB No nausea/vomiting, no abdominal pain No change in bowel habits noted He denies any acute urinary symptoms [facility] Medical History Impaired fasting glucose Erectile dysfunction Testicular mass Overweight (BMI 25.0-29.9) Surgical History (Updated 01/24/24 @ 18:45 by Mark Barbosa MD) Status post radical unilateral orchiectomy Family History Mother No problems noted. 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 1. Little interest or pleasure in doing things: not at all 2. Feeling down, depressed, or hopeless: not at all 3. Trouble falling or staying asleep, or sleeping too much: not at all 4. Feeling tired or having little energy: not at all 5. Poor appetite or overeating: not at all 6. Feeling bad about yourself - or that you are a failure or have let yourself or your family down: not at all 7. Trouble concentrating on things, such as reading the newspaper or watching television: not at all 8. Moving or speaking so slowly that other people could have noticed. Or the opposite - being so fidgety or restless that you have been moving around a lot more than usual: not at all 9. Thoughts that you would be better off or of hurting yourself in some way: not at all Total score: 0 Depression Screening Interpretation: Negative Depression Screening Done: Yes 31622 - PHQ-9 Billing: Yes Source: Developed by Drs. David Rangel, Iva Jimenez, Keyshawn Rizo and colleagues, with an educational adryan from [employer]. Thrive Questionnaire Date Thrive assessed: 01/24/24 I am a: Patient What is your living situation today?: I have a steady place to live Within the past 12 months, did the food you bought not last and you didn't have the money to get more?: Never true Within the past 12 months, did you worry whether your food would run out before you got money to buy more?: Never true Do you have trouble paying for medicines?: No Do you have trouble getting transportation to medical appointments?: No Do you have trouble paying your heating and electricity bill?: No Do you have trouble taking care of your child, family member or friend?: No Do you have trouble with day-to-day activities such as bathing, preparing meals, shopping, managing finances, etc.?: No Are you currently unemployed and looking for a job?: No Are you interested in more education?: No Please select the resources that you would like help with: None Currently or been in a relationship where the following occur: No concerns reported THRIVE Score: 0 AUDIT C Alcohol Use Questionnaire (AUDIT-C) 1. How often do you have a drink containing alcohol?: 4 or more times a week 2. How many drinks containing alcohol do you have on a typical day when you are drinking?: 1 or 2 3. How often do you have six or more drinks on one occasion?: Less than monthly Total Score: 5 Score Reviewed/Action Taken: Yes PARRIS-7 AMB Questionnaire PARRIS-7 Date PARRIS - 7 assessed: 01/24/24 Feeling nervous, anxious, or on edge: 0 = Not at all Not being able to stop or control worryin = Not at all Worrying too much about different things: 0 = Not at all Trouble relaxin = Not at all Being so restless that it is hard to sit still: 0 = Not at all Becoming easily annoyed or irritable: 0 = Not at all Feeling afraid as if something awful might happen: 0 = Not at all Total PARRIS-7 score (0-4 normal; 5-9 mild; 10-14 moderate; 15-21 severe): 0 Source: Developed by Drs. David Rangel, Iva Jimenez, Keyshawn Rizo and colleagues, with an educational adryan from [employer]. Review of Systems Const Denies chills, Denies fatigue, Denies fever(s), Denies headache(s), Denies malaise and Denies weakness Eyes Denies blurry vision, Denies change in vision, Denies irritation and Denies itchy eyes ENT Denies dysphagia, Denies dizziness, Denies otalgia, Denies headache(s), Denies nasal congestion, Denies neck pain, Denies odynophagia and Denies sore throat Card Denies chest pain, Denies rapid heart rate, Denies irregular heart rhythm, Denies palpitations and Denies dyspnea Resp Denies chest congestion, Denies cough, Denies dyspnea and Denies wheezing GI Denies abdominal pain, Denies bloating, Denies constipation, Denies dysphagia, Denies heartburn, Denies diarrhea, Denies nausea, Denies odynophagia and Denies vomiting Denies hematuria, Denies difficulty urinating, Denies dysuria, Denies urinary frequency and Denies urinary urgency Musc Denies back pain, Denies arthralgias, Denies joint swelling, Denies muscle weakness and Denies neck pain Skin/Breast Denies change in pigmentation, Denies lesions, Denies rash and Denies unusual bruising Neuro Denies dizziness, Denies headache(s), Denies paresthesias and Denies weakness Endo Denies fatigue and Denies palpitations Aller/Immun Denies itchy eyes and Denies wheezing Physical exam (Primary Care) Vital Signs: Last Vital Signs Pulse 68 01/24/24 17:22 BP 120/72 01/24/24 17:22 Pulse Ox 97 01/24/24 17:22 Oxygen Delivery Method Room Air 01/24/24 17:22 BMI result Body Mass Index 26.5 Tobacco/Smoking Status: Tobacco use Status Tobacco use date assessed 01/24/24 01/24/24 17:26 Patient Tobacco Use Status Former Tobacco user 01/24/24 17:26 Tobacco use type Cigarette 01/24/24 17:26 e-Cigarette/Vaping Use Never Used 01/24/24 17:26 PHQ-9: PHQ-9 Score PHQ-9: Total score 0 01/24/24 17:31 Depression Screening Interpretation: Negative Thrive Assessment: Date of Thrive Assessment Date Thrive assessed 01/24/24 01/24/24 17:26 Currently or been in a relationship where the following occur: No concerns reported Const General: no acute distress, alert and awake Orientation/consciousness: patient oriented x3 HENMT Head: Yes normocephalic and Yes atraumatic Ears: external ears normal, TM's normal bilaterally and EAC's normal General nose exam: No nasal discharge present Face and sinus: Yes normal facial exam and Yes sinuses nontender Teeth and gingiva: dentition normal Throat: Yes posterior oropharynx normal and Yes tonsils normal (no TP congestion) Eyes Eyelids: Yes eyelids normal Conjunctivae: conjunctivae normal Pupils: Equal, round and reactive pupils present EOM: EOMs intact bilaterally Neck Neck: Yes no lymphadenopathy and Yes supple Thyroid: Thyroid normal Resp Auscultation: clear to auscultation bilaterally, no rales and no wheezes Cardio Rate: regular rate Rhythm: regular rhythm Heart sounds: no murmurs GI Palpation (GI): Soft to palpation, nontender and No hepatosplenomegaly present Auscultation: normal bowel sounds General: Yes no CVA tenderness Back/Spine/Pelvis Back: no CVA tenderness Thoracic/Lumbar Spine: thoracic and lumbar spine normal to inspection Skin Lesions: no lesions Rashes: no rashes Neuro General: patient oriented x3, moves all extremities, no focal motor deficits and CN's II-XI intact bilaterally Cranial nerves: Yes Equal, round and reactive pupils present Cognition (Neuro): normal cognition Gait exam (Neuro): Normal gait present Extrem General: Yes no clubbing, cyanosis or edema Results Reviewed Results Reviewed: Laboratory Tests 01/17/24 15:07 WBC 8.8 Hgb 14.2 Hct 41.0 L Plt Count 250 Sodium 139 Potassium 4.0 Creatinine 1.21 Estimated GFR > 60 Random Glucose 103 Calcium 9.6 D AST 37 ALT 42 H Lactate Dehydrogenase 186 Alpha Fetoprotein 3.6 Tumor Marker HCG <5 Coding Level of Care Code Est Pt Prev Care 40-64y(12454) Diagnoses Annual physical exam Z00.00 Seminoma C62.90 Impaired fasting glucose R73.01 Overweight (BMI 25.0-29.9) E66.3 Additional Codes PHQ-9 - 70453 - PHQ-9 Billing: Yes ([id number]) Assessment & Plan Assessment & Plan (1) Annual physical exam: Code(s): Z00.00 - Encounter for general adult medical examination without abnormal findings Category: Medical Plan: Patient had some labs done over the past few months - results reviewed and discussed with patient Advised that his labs are mostly within normal range and no other labs are needed immediately at this time Will just have him recheck his labs, including repeat fasting lipids, in 6 months for follow up (2) Seminoma: Comment: Right seminoma T1b Code(s): C62.90 - Malignant neoplasm of unspecified testis, unspecified whether descended or undescended Category: Medical Plan: S/P right radical orchiectomy on 12/19/2023 Pathology came back as seminoma, pT1b, with all margins clear of tumor He was seen by oncology last week and is being sent for chest, abdomen and pelvic CT for staging, after which he will be starting adjuvant treatment with 1 to 2 cycles of carboplatin (3) Impaired fasting glucose: Code(s): R73.01 - Impaired fasting glucose Category: Medical Plan: Reinforced low calorie/low carb diet His FBS was elevated at 114 mg/dl back in 2021 but a more recent random blood sugar reading a week ago on 01/17/2024 was normal at 103 mg/dl Will continue to monitor this regularly (4) Overweight (BMI 25.0-29.9): Code(s): E66.3 - Overweight Category: Medical Plan: Reinforced diet/exercise as tolerated/lose weight Plan Follow up in 6 months Orders: Orders Complete Blood Count Auto Diff 6 Months D64.9 - Anemia, unspecified UA CC w/rflx Micro + Cult 6 Months R30.0 - Dysuria Lipid Panel 6 Months E78.00 - Pure hypercholesterolemia, unspecified Comprehensive [place]. Panel Fast 6 Months E78.00 - Pure hypercholesterolemia, unspecified
== END 2024-01-24 17:42 | disposition home or self-care (01) ==
LOC: HO.HMCH 17:20
PROVIDERS: PCP Internal Medicine; Visit Provider Internal Medicine
DX: Z00.00 Encounter for general adult medical examination without abnormal findings (principal); C62.90 Malignant neoplasm of unspecified testis, unspecified whether descended or undescended; R73.01 Impaired fasting glucose; E66.3 Overweight

== ENCOUNTER → 2024-01-24 17:20 | Outpatient (BNVA) | payer OTHER, SELFPAY | PROVIDERS: PCP Internal Medicine; Visit Provider Internal Medicine | DX: Z00.00 Encounter for general adult medical examination without abnormal findings (principal); C62.90 Malignant neoplasm of unspecified testis, unspecified whether descended or undescended; R73.01 Impaired fasting glucose; E66.3 Overweight | CPT/HCPCS: 96127; 99396 ==

== ENCOUNTER 2024-01-31 13:05 | Outpatient (REF) | payer OTHER, SELFPAY ==
--- NOTE | ~2024-01-31 | CT_ITS ---
EXAMINATION: CT ABDOMEN AND PELVIS WITH CONTRAST CLINICAL INFORMATION: Seminoma. Initial staging. COMPARISON: CT dated October 30, 2023. TECHNIQUE: Multidetector volumetric images were obtained from the superior aspect of the liver through the pubic symphysis following administration 85 mL of Omnipaque 350 intravenous contrast without reported immediate complications. Sagittal and coronal reformatted images were obtained on the technologist's workstation. Oral contrast: No This CT examination was performed using dose optimization techniques as appropriate, variously including the following: *Automated exposure control *Adjustment of mA and/or kV according to patient size (this includes techniques or standardized protocols for targeted exams where dose is matched to indication/reason for exam; i.e. extremities or head) *Use of iterative reconstruction technique DLP: 553 mGy-cm FINDINGS: LUNG BASES: No acute airspace disease or gross pulmonary nodules. LIVER, GALLBLADDER, AND BILIARY TREE: Liver measures 17 cm. Decreased enhancement pattern. No focal mass. Portal veins and hepatic veins are patent. Intrahepatic portion of the IVC is patent. No pericholecystic fluid collection or gallbladder wall thickening. Common bile duct measures 3 mm. PANCREAS: No focal mass. No peripancreatic fluid collections. No main pancreatic ductal dilatation. SPLEEN: 11 cm. No focal mass. ADRENAL GLANDS: No nodular lesions. KIDNEYS AND URETERS: No renal mass or hydronephrosis. BLADDER: Fluid-filled. GASTROINTESTINAL TRACT: Abundant stool throughout the large intestine. Numerous diverticula throughout the large intestine. No intestinal obstruction pattern. No pneumatosis intestinalis. Appendix is normal. No pneumoperitoneum. No ascites. ABDOMINAL WALL: No gross hernia. LYMPH NODES: Numerous prominent lymph nodes in the area iliac ischiorectal and to a lesser extent retroperitoneal periaortic. VASCULAR: No aneurysm or dissection, abdominal aorta. PELVIC VISCERA: I do not see the right testicle. Prominent left pampiniform plexus. OSSEOUS STRUCTURES: Multilevel spondylosis. Grade 1 retrolisthesis L4-5 on a degenerative basis. No acute fracture. No lytic or blastic lesions. CT/CT abdomen pelvis w IV con IMPRESSION: Nonspecific prominent lymph nodes, jose-iliac/ischiorectal and periaortic Hepatomegaly, mild and steatosis. Diverticular disease, colon.. Fleischner guidelines were followed. Electronically signed by: Guy Arevalo MD 02/03/2024 02:33 PM EST RP
--- NOTE | ~2024-01-31 | CT_ITS ---
EXAMINATION: CT CHEST WITH CONTRAST CLINICAL INFORMATION: Seminoma. Initial staging. COMPARISON: None available. TECHNIQUE: Multidetector volumetric CT imaging of the chest was obtained after the administration of 85 mL of Omnipaque 350 intravenous contrast without immediate adverse reactions. Axial MIP volume rendering provided. Sagittal and coronal reformatted images were obtained. This CT examination was performed using dose optimization techniques as appropriate, variously including the following: *Automated exposure control *Adjustment of mA and/or kV according to patient size (this includes techniques or standardized protocols for targeted exams where dose is matched to indication/reason for exam; i.e. extremities or head) *Use of iterative reconstruction technique DLP: 243 mGy-cm FINDINGS: Submitted for interpretation on February 03, 2024. LUNGS: No gross pulmonary nodules. No bronchiectasis. No honeycombing. Respiratory airways patent. No acute airspace disease. MEDIASTINUM: No lymphadenopathy. No pericardial effusion. No aneurysm or dissection, thoracic aorta. PLEURA: No pleural effusion. No pneumothorax. AXILLA: No lymphadenopathy. UPPER ABDOMEN: Decreased enhancement of the liver and appears enlarged. OSSEOUS STRUCTURES: Multilevel spondylosis without acute fracture or listhesis. 3 mm blastic lesion in the right pedicle of T6, nonspecific. CT/CT chest w IV con IMPRESSION: No acute airspace disease or metastatic disease. Fleischner guidelines were followed. Electronically signed by: Guy Arevalo MD 02/03/2024 02:26 PM [facility]
[2024-01-31] MEDS: iohexoL 350 MG/ML 100 ML INFUS..BTL IV (15:24)
[2024-01-31] MEDS: Barium Sulfate Oral (Mocha) 450 ML ORAL.SUSP PO ×2 (15:25)
== END 2024-01-31 13:06 | disposition home or self-care (01) ==
LOC: HO.CT 13:05
PROVIDERS: PCP Internal Medicine; Visit Provider Internal Medicine Medical Oncology
DX: C62.90 Malignant neoplasm of unspecified testis, unspecified whether descended or undescended (principal)
CPT/HCPCS: 71260; 74177; Q9967

== ENCOUNTER → 2024-01-31 13:07 | Outpatient (BNV) | payer OTHER, SELFPAY | PROVIDERS: PCP Internal Medicine; Visit Provider Radiology Diagnostic Radiology | DX: C62.90 Malignant neoplasm of unspecified testis, unspecified whether descended or undescended (principal) | CPT/HCPCS: 71260; 74177 ==

== ENCOUNTER 2024-02-03 08:36 | Outpatient (AMB) | payer OTHER, SELFPAY ==
--- NOTE | 2024-02-03 08:37 | MHC.OFFVIS ---
Intake Visit Reasons: 1M Follow up(Oncology Visit 01/16) Intake Note: Patient is present for Follow Up Oncology Visit Urology Med: None Antibiotic Allergy: Penicillin's Blood Thinner: None Dr. Barclay Oncology Visit: 01/17/24 Napper Grinder Required: No Accompanied by: Self / Same As Patient Allergies Penicillins [PCN] Allergy (Intermediate, Verified 02/03/24 08:39) RASH HPI Comments Details: Александр is a very pleasant male. He is a patient of . 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 Cognitive needs: No Hearing needs: No Vision needs: No Review of Systems Const Denies chills and Denies fever(s) Card Reports no additional complaints and Denies syncope Resp Denies cough GI Denies abdominal pain and Denies heartburn Reports as per HPI and Denies change in libido Neuro Denies syncope Psych Denies change in libido Endo Denies change in libido Physical Exam Const General: cooperative, healthy appearing, comfortable and no acute distress Orientation/consciousness: patient oriented x3 HEENT Face and sinus: Yes normal facial exam Mouth: moist mucous membranes Neck Neck: Yes normal visual inspection, Yes full ROM and Yes trachea midline Chest Chest palpation & inspection: normal inspection of the chest Resp Effort & Inspection: normal respiratory effort, able to speak in complete sentences and no respiratory distress GI Inspection: Yes normal to inspection Back/Spine/Pelvis Cervical Spine: normal cervical lordosis Thoracic/Lumbar Spine: thoracic and lumbar spine normal to inspection Skin General skin exam: no rashes or lesions noted Neuro General: patient oriented x3, gait normal, tone normal and moves all extremities Extrem General: Yes normal to inspection and Yes capillary refill normal Assessment & Plan Assessment & Plan (1) Seminoma: Comment: Right seminoma T1b Code(s): C62.90 - Malignant neoplasm of unspecified testis, unspecified whether descended or undescended Category: Medical Plan Six-month follow-up office Patient Instructions: Imaging studies, laboratory and physical exam results were discussed and reviewed in detail. No major barriers to patient understanding were identified. An opportunity to ask questions regarding the treatment plan was provided. All questions were answered. The patient expressed understanding and agreement with the above treatment plan. The patient is aware they should contact our office by phone for worsening of their current condition or the appearance of new urologic symptoms. Compliance is encouraged with any medications and followup testing that is ordered. It is a privilege to participate in the urologic care of your patient. If you have any questions or concerns regarding treatment for the above conditions, or other urologic issues, please do not hesitate to contact me. The office telephone contact is [phone]. This note is constructed using voice recognition software. While every effort has been made to ensure accuracy advanced seal delivery system errors may have been included. Yours sincerely, Dr Kingston Troy MD, [facility] [place] - Urology Providers of Expert, Compassionate Care for the Genitourinary System Coding Level of Care Code Est Pt Level 3 (74231) Diagnoses Seminoma C62.90
== END 2024-02-03 09:13 | disposition home or self-care (01) ==
PROVIDERS: PCP Internal Medicine; Visit Provider Urology
DX: C62.90 Malignant neoplasm of unspecified testis, unspecified whether descended or undescended (principal)
CPT/HCPCS: 99213

== ENCOUNTER → 2024-02-03 08:36 | Outpatient (BNVA) | payer OTHER, SELFPAY | PROVIDERS: PCP Internal Medicine; Visit Provider Urology | DX: C62.91 Malignant neoplasm of right testis, unspecified whether descended or undescended (principal); Z90.79 Acquired absence of other genital organ(s) | CPT/HCPCS: 99212 ==

== ENCOUNTER 2024-05-21 06:16 | Outpatient (REF) | payer OTHER, SELFPAY ==
--- NOTE | ~2024-05-21 | CT_ITS ---
CLINICAL HISTORY: Follow-up for seminoma, CT chest with contrast Comparison: CT/NM/SR - CT CHEST W IV CON - 01/31/24 15:02 EST Findings: No mediastinal mass or lymphadenopathy. Unremarkable heart and vasculature. No pulmonary parenchymal or airway pathology. No pneumothorax or pleural effusion. No acute osseous or soft tissue abnormality. No acute pathology in the imaged portion of the upper abdomen. Impression: No acute findings. No evidence of metastatic disease. This document has been electronically signed by: Lashanda Cary MD on 05/21/2024 17:10:31
--- NOTE | ~2024-05-21 | CT_ITS ---
CLINICAL HISTORY: Seminoma status post chemo CT abdomen and pelvis with contrast Comparison: CT of abdomen and pelvis from 01/31/2024 Findings: No consolidation of the imaged lung bases. No significant change in imaged retroperitoneal lymph nodes. Index infrarenal aortocaval lymph node measures 0.6 cm short axis (image 42 of series 5), previously 0.6 cm short axis. No new or enlarging retroperitoneal lymphadenopathy. Solid abdominal organs are unchanged. Gallbladder is unremarkable. No small bowel obstruction. Enteric contrast noted in the small intestine and large intestine, with severe stool burden. The appendix is within normal limits. No free intraperitoneal air. Prostate gland measures 4.3 cm transverse. Mild distention of the urinary bladder. Post right orchectomy change. No lytic or blastic osseous lesion by CT. Transitional vertebral anatomy of the lumbosacral junction with lower lumbar facet arthropathy. Small Schmorl's nodes include imaged thoracic vertebrae. Mild osteoarthritis of the hips. IMPRESSION: Stable examination compared to 01/31/2024. No new or enlarging retroperitoneal lymphadenopathy. This document has been electronically signed by: Ramirez Jacobs MD on 05/21/2024 19:55:53
[2024-05-21 07:03] LABS: MANUAL DIFF FLAG NO
[2024-05-21 07:52] LABS: Basophils Absolute Auto 0.1 X10*3/uL (0.0-0.2); Basophils Percent Auto 0.8 % (0-2); Eosinophils Absolute Auto 0.2 X10*3/uL (0.0-0.4); Eosinophils Percent Auto 2.7 % (0-4); Hematocrit 42.7 % (42.0-52.0); Hemoglobin 14.8 g/dl (14.0-18.0); Imm Gran Abs Auto 0.06 X10*3/uL (0.00-0.03); Lymphocytes Percent Auto 32.5 % (20-40); Mean Corpuscular HGB Conc 34.7 g/dl (31.0-36.0); Mean Corpuscular Volume 89.3 fL (80.0-98.0); Mean Platelet Volume 10.2 fL (9.4-12.4); Monocytes Absolute Auto 0.9 X10*3/uL (0.1-1.2); Monocytes Percent Auto 13.7 % (2-11); Neutrophils Absolute Auto 3.1 x10*3/uL (2.0-8.3); Neutrophils Percent Auto 49.3 % (45-73); Platelet Count 251 X10*3/uL (160-400); Red Blood Count 4.78 X10*6/uL (4.60-5.80); Red Cell Distribution Width 13.4 % (11.0-16.0); White Blood Count 6.3 X10*3/uL (4.8-10.8)
[2024-05-21 08:13] LABS: Alanine Aminotransferase 31 U/L (0-40); Albumin Level 4.6 g/dL (3.5-5.0); Alkaline Phosphatase 44 U/L (39-117); Anion Gap 13 (12-20); Aspartate Amino Transferase 26 U/L (5-37); Bilirubin Total 0.9 mg/dL (0.0-1.0); Blood Urea Nitrogen 23 mg/dL (9-16); Calcium 9.5 mg/dL (8.4-10.2); Carbon Dioxide 26 mmol/L (22-29); Chloride 105 mmol/L (96-108); Estimated Glomerular Filt Rate > 60; Glucose Random 106 mg/dL (60-115); Magnesium 2.5 mg/dL (1.6-2.6); Potassium 4.6 mmol/L (3.3-5.1); Sodium 139 mmol/L (135-145); Total Protein 7.6 g/dL (6.5-8.0)
[2024-05-21 08:22] LABS: Lactate Dehydrogenase 177 U/L (118-273)
[2024-05-21] MEDS: Barium Sulfate Oral (Vanilla) 450 ML ORAL.SUSP 900 ML PO (10:44)
[2024-05-21] MEDS: iohexoL 350 MG/ML 75 ML INFUS..BTL 85 ML IV (10:44)
[2024-05-22 05:53] LABS: HCG Tumor Marker <5 mIU/mL (<5)
[2024-05-22 10:58] LABS: Alpha Fetoprotein 3.9 ng/mL (<6.1)
== END 2024-05-21 06:17 | disposition home or self-care (01) ==
LOC: HO.CT 06:16
PROVIDERS: PCP Internal Medicine; Visit Provider Internal Medicine Medical Oncology
DX: C62.90 Malignant neoplasm of unspecified testis, unspecified whether descended or undescended (principal)
CPT/HCPCS: 36415; 71260; 74177; 80053; 82105; 83615; 83735; 84702; 85025; Q9967

== ENCOUNTER → 2024-05-21 07:47 | Outpatient (BNV) | payer OTHER, SELFPAY | PROVIDERS: PCP Internal Medicine; Visit Provider Radiology Diagnostic Radiology | DX: C62.90 Malignant neoplasm of unspecified testis, unspecified whether descended or undescended (principal) | CPT/HCPCS: 74177 ==

== ENCOUNTER 2024-07-23 17:15 | Outpatient (AMB) | payer OTHER, SELFPAY ==
--- NOTE | 2024-07-23 17:25 | MHC.PC.OV ---
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 Required: No Accompanied by: Self / Same As Patient Allergies Penicillins [PCN] Allergy (Intermediate, Verified 07/23/24 17:53) RASH Medication List - Last Reconciled 07/23/24 by Mark Barbosa MD No Known Home Meds Tobacco use date assessed: 07/23/24 Dental Screening Dental Screen Date: 07/23/24 Did you have a dental visit in the last 12 months?: Yes Did you have a dental problem in the last 6 months where you did not have access to dental care?: No Was dental information given to patient?: Patient has dentist HPI 6 Months HPI Details Patient comes in today for his follow up visit States that he feels okay He denies any headaches or dizziness Denies any chest pains, no increased shortness of breath No nausea/vomiting, no abdominal pain No change in bowel habits noted He had his follow-up labs done last month - to discuss his results [facility] Medical History Impaired fasting glucose Erectile dysfunction Testicular mass Overweight (BMI 25.0-29.9) Surgical History Status post radical unilateral orchiectomy Family History Mother No problems noted. 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 1. Little interest or pleasure in doing things: not at all 2. Feeling down, depressed, or hopeless: not at all 3. Trouble falling or staying asleep, or sleeping too much: not at all 4. Feeling tired or having little energy: not at all 5. Poor appetite or overeating: not at all 6. Feeling bad about yourself - or that you are a failure or have let yourself or your family down: not at all 7. Trouble concentrating on things, such as reading the newspaper or watching television: not at all 8. Moving or speaking so slowly that other people could have noticed. Or the opposite - being so fidgety or restless that you have been moving around a lot more than usual: not at all 9. Thoughts that you would be better off or of hurting yourself in some way: not at all Total score: 0 Depression Screening Interpretation: Negative Depression Screening Done: Yes 35853 - PHQ-9 Billing: Yes Source: Developed by Drs. David Rangel, Iva Jimenez, Keyshawn Rizo and colleagues, with an educational adryan from [employer]. Thrive Questionnaire Date Thrive assessed: 07/23/24 I am a: Patient What is your living situation today?: I have a steady place to live Within the past 12 months, did the food you bought not last and you didn't have the money to get more?: Never true Within the past 12 months, did you worry whether your food would run out before you got money to buy more?: Never true Do you have trouble paying for medicines?: No Do you have trouble getting transportation to medical appointments?: No Do you have trouble paying your heating and electricity bill?: No Do you have trouble taking care of your child, family member or friend?: No Do you have trouble with day-to-day activities such as bathing, preparing meals, shopping, managing finances, etc.?: No Are you currently unemployed and looking for a job?: No Are you interested in more education?: No Please select the resources that you would like help with: None Currently or been in a relationship where the following occur: No concerns reported THRIVE Score: 0 AUDIT C Alcohol Use Questionnaire (AUDIT-C) 1. How often do you have a drink containing alcohol?: 2-3 times a week 2. How many drinks containing alcohol do you have on a typical day when you are drinking?: 3 or 4 3. How often do you have six or more drinks on one occasion?: Less than monthly Total Score: 5 Score Reviewed/Action Taken: Yes PARRIS-7 AMB Questionnaire PARRIS-7 Date PARRIS - 7 assessed: 07/23/24 Feeling nervous, anxious, or on edge: 0 = Not at all Not being able to stop or control worryin = Not at all Worrying too much about different things: 0 = Not at all Trouble relaxin = Not at all Being so restless that it is hard to sit still: 0 = Not at all Becoming easily annoyed or irritable: 0 = Not at all Feeling afraid as if something awful might happen: 0 = Not at all Total PARRIS-7 score (0-4 normal; 5-9 mild; 10-14 moderate; 15-21 severe): 0 Source: Developed by Drs. David Rangel, Iva Jimenez, Keyshawn Rizo and colleagues, with an educational adryan from [employer]. PARRIS-7 Assessment Billing PARRIS-7 Assessment Tool: PARRIS-7 Assessment 01515 Review of Systems Const Denies chills, Denies fatigue, Denies fever(s) and Denies headache(s) ENT Denies dysphagia, Denies dizziness, Denies otalgia, Denies headache(s), Denies neck pain, Denies odynophagia and Denies sore throat Card Denies chest pain, Denies irregular heart rhythm, Denies palpitations and Denies dyspnea Resp Denies chest congestion, Denies cough and Denies dyspnea GI Denies abdominal pain, Denies constipation, Denies dysphagia, Denies heartburn, Denies diarrhea, Denies nausea, Denies odynophagia and Denies vomiting Denies difficulty urinating, Denies dysuria and Denies urinary frequency Musc Denies back pain, Denies arthralgias and Denies neck pain Skin/Breast Denies rash Neuro Denies dizziness, Denies headache(s) and Denies paresthesias Endo Denies fatigue and Denies palpitations Physical exam (Primary Care) Vital Signs: Last Vital Signs Temp 97.3 F 07/23/24 17:27 Pulse 78 07/23/24 17:27 BP 130/76 07/23/24 17:27 Pulse Ox 97 07/23/24 17:27 Oxygen Delivery Method Room Air 07/23/24 17:27 BMI result Body Mass Index 27.2 Tobacco/Smoking Status: Tobacco use Status Tobacco use date assessed 07/23/24 07/23/24 17:32 Patient Tobacco Use Status Former Tobacco user 07/23/24 17:28 Tobacco use type Cigarette 07/23/24 17:28 e-Cigarette/Vaping Use Never Used 07/23/24 17:28 PHQ-9: PHQ-9 Score PHQ-9: Total score 0 07/23/24 17:54 Depression Screening Interpretation: Negative Thrive Assessment: Date of Thrive Assessment Date Thrive assessed 07/23/24 07/23/24 17:32 Currently or been in a relationship where the following occur: No concerns reported Const General: no acute distress and alert HENMT Ears: TM's normal bilaterally and EAC's normal Throat: Yes posterior oropharynx normal and Yes tonsils normal (no TP congestion) Neck Neck: Yes no lymphadenopathy and Yes supple Thyroid: Thyroid normal Resp Auscultation: clear to auscultation bilaterally, no rales and no wheezes Cardio Rate: regular rate Rhythm: regular rhythm Heart sounds: no murmurs GI Palpation (GI): Soft to palpation and nontender Auscultation: normal bowel sounds General: Yes no CVA tenderness Back/Spine/Pelvis Back: no CVA tenderness Thoracic/Lumbar Spine: No lumbar spinal tenderness Skin Rashes: no rashes Extrem General: Yes no clubbing, cyanosis or edema Results Reviewed Results Reviewed: Laboratory Tests 06/25/24 15:32 WBC 7.4 Hgb 14.3 Hct 41.3 L Plt Count 225 Sodium 139 Potassium 3.8 Creatinine 0.99 Estimated GFR > 60 Random Glucose 94 Calcium 9.0 AST 31 ALT 39 Coding Level of Care Code Est Pt Level 3 (76186) Diagnoses Seminoma C62.90 Impaired fasting glucose R73.01 Overweight (BMI 25.0-29.9) E66.3 Additional Codes PARRIS-7 Assessment Billing - PARRIS-7 Assessment Tool: PARRIS-7 Assessment 43102 ([id number]) PHQ-9 - 43058 - PHQ-9 Billing: Yes ([id number]) Assessment & Plan Assessment & Plan (1) Seminoma: Comment: Right seminoma T1b Code(s): C62.90 - Malignant neoplasm of unspecified testis, unspecified whether descended or undescended Category: Medical Plan: S/P right radical orchiectomy on 12/19/2023 Pathology came back as seminoma, pT1b, with all margins clear of tumor He completed adjuvant treatment with carboplatin x 2 cycles with AUC of 7 - first cycle on 02/27, second cycle on 03/20/2024 Follow-up with Oncology and with Urology as scheduled for continuing surveillance (2) Impaired fasting glucose: Code(s): R73.01 - Impaired fasting glucose Category: Medical Plan: Reinforced low calorie/low carb diet His FBS was elevated at 114 mg/dl back in 2021 but a more recent random blood sugar reading on 01/17/2024 was normal at 103 mg/dl RBS last month was normal at 94 mg/dl Will continue to monitor this regularly Results of his labs done last month reviewed and discussed with patient - labs were non-fasting (3) Overweight (BMI 25.0-29.9): Code(s): E66.3 - Overweight Category: Medical Plan: Reinforced diet/exercise as tolerated/lose weight Plan To return in 6 months for his next annual physical examination Will have patient try to get fasting labs just before he returns in 6 months for his next annual PE Orders: Orders Comprehensive [place]. Panel Fast 01/26/25 E78.00 - Pure hypercholesterolemia, unspecified, Z00.00 - Encounter for general adult medical examination without abnormal findings Lipid Panel 01/26/25 E78.00 - Pure hypercholesterolemia, unspecified, Z00.00 - Encounter for general adult medical examination without abnormal findings TSH reflex Free T4 01/26/25 E78.00 - Pure hypercholesterolemia, unspecified, Z00.00 - Encounter for general adult medical examination without abnormal findings Complete Blood Count Auto Diff 01/26/25 D64.9 - Anemia, unspecified, Z00.00 - Encounter for general adult medical examination without abnormal findings UA CC w/rflx Micro + Cult 01/26/25 R30.0 - Dysuria, Z00.00 - Encounter for general adult medical examination without abnormal findings Vitamin D 25-OH Total 01/26/25 E55.9 - Vitamin D deficiency, unspecified, Z00.00 - Encounter for general adult medical examination without abnormal findings
[2024-07-23 17:27] VITALS: BP 130/76; PULSE 78; TEMP 36.3; O2SAT 97; BMI 27.2
== END 2024-07-23 18:00 | disposition home or self-care (01) ==
LOC: HO.HMCH 17:16
PROVIDERS: PCP Internal Medicine; Visit Provider Internal Medicine
DX: C62.90 Malignant neoplasm of unspecified testis, unspecified whether descended or undescended (principal); R73.01 Impaired fasting glucose; E66.3 Overweight

== ENCOUNTER → 2024-07-23 17:15 | Outpatient (BNVA) | payer OTHER, SELFPAY | PROVIDERS: PCP Internal Medicine; Visit Provider Internal Medicine | DX: C62.91 Malignant neoplasm of right testis, unspecified whether descended or undescended (principal); R73.01 Impaired fasting glucose; E66.3 Overweight; Z68.27 Body mass index [BMI] 27.0-27.9, adult; Z90.79 Acquired absence of other genital organ(s) | CPT/HCPCS: 96127; 99212 ==

== ENCOUNTER 2024-08-02 08:26 | Outpatient (AMB) | payer OTHER, SELFPAY ==
--- NOTE | 2024-08-02 08:29 | MHC.OFFVIS ---
Intake Visit Reasons: 6m follow up Intake Note: Pt presents to the office today for a 6 month follow up for seminoma. Urology Meds:None Allergies Penicillins [PCN] Allergy (Intermediate, Verified 08/02/24 08:29) RASH HPI Comments Details: Александр is a very pleasant male. He is a patient of . He is seen for the following urologic conditions - right testicular seminoma Tumor markers normal Follow-up imaging normal We will require imaging every 6 months for 2 years yearly out to 5 year Completed single cycle chemotherapy Seminoma, 3.1 cm (pT1b): - All margins are free of tumor Right testicular seminoma Ultrasound with 4 cm right testicular heterogeneous vascular mass CT scan no evidence brenda disease Tumor markers negative Radical orchiectomy - seminoma pT1 [facility] Medical History Impaired fasting glucose Erectile dysfunction Testicular mass Overweight (BMI 25.0-29.9) Surgical History Status post radical unilateral orchiectomy Family History Mother No problems noted. 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 Cognitive needs: No Hearing needs: No Vision needs: No Review of Systems Const Denies chills and Denies fever(s) Card Reports no additional complaints and Denies syncope Resp Denies cough GI Denies abdominal pain and Denies heartburn Reports as per HPI and Denies change in libido Neuro Denies syncope Psych Denies change in libido Endo Denies change in libido Physical Exam Const General: cooperative, healthy appearing, comfortable and no acute distress Orientation/consciousness: patient oriented x3 HEENT Face and sinus: Yes normal facial exam Mouth: moist mucous membranes Neck Neck: Yes normal visual inspection, Yes full ROM and Yes trachea midline Chest Chest palpation & inspection: normal inspection of the chest Resp Effort & Inspection: normal respiratory effort, able to speak in complete sentences and no respiratory distress GI Inspection: Yes normal to inspection Back/Spine/Pelvis Cervical Spine: normal cervical lordosis Thoracic/Lumbar Spine: thoracic and lumbar spine normal to inspection Skin General skin exam: no rashes or lesions noted Neuro General: patient oriented x3, gait normal, tone normal and moves all extremities Extrem General: Yes normal to inspection and Yes capillary refill normal Assessment & Plan Assessment & Plan (1) Seminoma: Comment: Right seminoma T1b Code(s): C62.90 - Malignant neoplasm of unspecified testis, unspecified whether descended or undescended Category: Medical Plan Six-month follow-up image Orders: Orders CT abdomen pelvis wo/w IV con 6 Months C62.90 - Malignant neoplasm of unspecified testis, unspecified whether descended or undescended Patient Instructions: This note is constructed using voice recognition software. While every effort has been made to ensure accuracy financial services education consultant errors may have been included. Imaging studies, laboratory and physical exam results were discussed and reviewed in detail. No major barriers to patient understanding were identified. An opportunity to ask questions regarding the treatment plan was provided. All questions were answered. The patient expressed understanding and agreement with the above treatment plan. The patient is aware they should contact our office by phone for worsening of their current condition or the appearance of new urologic symptoms. Compliance is encouraged with any medications and followup testing that is ordered. It is a privilege to participate in the urologic care of your patient. If you have any questions or concerns regarding treatment for the above conditions, or other urologic issues, please do not hesitate to contact me. The office telephone contact is [phone]. Sincerely, Dr Kingston Troy MD, ROLA [facility] - Urology Compassionate Specialist Care for the Genitourinary System Coding Level of Care Code Est Pt Level 3 (84649) Complex EM visit Add On G2211 Diagnoses Seminoma C62.90
== END 2024-08-02 09:04 | disposition home or self-care (01) ==
LOC: HO.HUSH 08:27
PROVIDERS: PCP Internal Medicine; Visit Provider Urology
DX: C62.90 Malignant neoplasm of unspecified testis, unspecified whether descended or undescended (principal)
CPT/HCPCS: 99213; G2211

== ENCOUNTER → 2024-08-02 08:26 | Outpatient (BNVA) | payer OTHER, SELFPAY | PROVIDERS: PCP Internal Medicine; Visit Provider Urology | DX: C62.91 Malignant neoplasm of right testis, unspecified whether descended or undescended (principal) | CPT/HCPCS: 99212 ==

== ENCOUNTER 2025-03-05 13:37 | Outpatient (REF) | payer OTHER, SELFPAY ==
--- NOTE | ~2025-03-05 | CT_ITS ---
CLINICAL HISTORY: C62.90 - Malignant neoplasm of unspecified testis, unspecified whether d... Exam: Pre and post-contrast CT abdomen and pelvis with multiplanar reformats. Comparison: 05/21/2024. Findings: CT abdomen: Lung bases are clear. Liver is free of focal lesions and ductal dilatation. Gallbladder is unremarkable. Spleen is unremarkable. Pancreas and adrenal glands appear unremarkable. Kidneys are unremarkable. No free intraperitoneal fluid or retroperitoneal masses or adenopathy. Small subcentimeter retroperitoneal/aortocaval lymph nodes (for example, 8; 377) are stable. Abdominal aorta is normal caliber. Bowel loops reveal no abnormal wall thickening or distention. CT pelvis: Prostate gland and seminal vesicles are stable. Urinary bladder is free of gross filling defects. No pelvic masses, fluid or adenopathy. Osseous structures reveal no destructive osseous lesions. Impression: 1. No acute interval change compared with the prior exam. No CT evidence of metastatic disease. This document has been electronically signed by: Andreas Paniagua MD on 03/06/2025 20:48:11
[2025-03-05] MEDS: iohexoL 350 MG/ML 100 ML INFUS..BTL IV (16:22)
[2025-03-05] MEDS: Barium Sulfate Oral (Mocha) 450 ML ORAL.SUSP 900 ML PO (16:23)
== END 2025-03-05 13:38 | disposition home or self-care (01) ==
LOC: HO.CT 13:37
PROVIDERS: PCP Internal Medicine; Referring Provider Urology; Visit Provider Internal Medicine Medical Oncology
DX: C62.90 Malignant neoplasm of unspecified testis, unspecified whether descended or undescended (principal)
CPT/HCPCS: 74178; Q9967